=== PATIENT | female | born 1930 | race Caucasian/White ===

== ENCOUNTER 2018-06-21 08:46 | Outpatient (CLI) | payer MEDICARE, OTHER ==
[~2018-06-21 08:46] MED LIST: CT SWABBABLE VALVE TRANS SET 1 EA INFUS.SET MC ONE; IOHEXOL-300 100 ML VIAL IV ONE; IV NS 0.9% 0 ML IV ONE
[2018-06-21] MEDS ORDERED: IOHEXOL-300 100 ML VIAL IV ONE (09:21)
[2018-06-21] MEDS ORDERED: IV NS 0.9% 250 ML IV ONE (09:21)
== END 2018-06-21 23:59 | disposition home or self-care (01) ==
LOC: CT 08:46
PROVIDERS: ATTEND Psychiatry & Neurology Psychiatry
DX: K65.1 Peritoneal abscess (principal); E27.8 Other specified disorders of adrenal gland; R91.1 Solitary pulmonary nodule; I25.10 Atherosclerotic heart disease of native coronary artery without angina pectoris; K80.20 Calculus of gallbladder without cholecystitis without obstruction; K86.89 Other specified diseases of pancreas; K57.30 Diverticulosis of large intestine without perforation or abscess without bleeding; I70.0 Atherosclerosis of aorta; M81.0 Age-related osteoporosis without current pathological fracture; M16.11 Unilateral primary osteoarthritis, right hip
CPT/HCPCS: 74177; J7050; Q9967

== ENCOUNTER 2018-06-28 15:01 | Inpatient (IN) | payer MEDICARE, OTHER ==
[2018-06-28] VITALS (11 sets, daily range): BP systolic 34–127; BP diastolic 27–75
[~2018-06-28] VITALS: Ht 162.6 cm; Wt 70.5 kg
--- NOTE | 2018-06-28 15:16 | NUR ---
SEEN AND EXAMINED BY DR. MAYFIELD.
[2018-06-28] MEDS ORDERED: IV NS 0.9% 500 ML BAG IV ONE (15:30)
[2018-06-28] MEDS ORDERED: ISOS5TAB PO (15:36)
[2018-06-28] MEDS ORDERED: ASCO500T9 PO (15:36)
[2018-06-28] MEDS ORDERED: DIVA125C2 PO (15:36)
[2018-06-28] MEDS ORDERED: IPRA0.2S9 IH (15:36)
[2018-06-28] MEDS ORDERED: ALBU2.5V38 IH (15:36)
[2018-06-28] MEDS ORDERED: CLOP75TA15 PO (15:36)
[2018-06-28] MEDS ORDERED: OXYB10TA PO (15:36)
[2018-06-28] MEDS ORDERED: DOCU240C26 PO (15:36)
[2018-06-28] MEDS ORDERED: BLOO-668 IN (15:36)
[2018-06-28] MEDS ORDERED: ZINC220C8 PO (15:36)
[2018-06-28] MEDS ORDERED: INSU100I34 SQ (15:36)
[2018-06-28] MEDS ORDERED: BISA10SU8 RC (15:36)
[2018-06-28] MEDS ORDERED: ACET-868 PO ×2 (15:36)
[2018-06-28] MEDS ORDERED: DONE5TAB34 PO (15:36)
[2018-06-28] MEDS ORDERED: LACT10SO PO (15:36)
[2018-06-28] MEDS ORDERED: NA P133E RC (15:36)
[2018-06-28] MEDS ORDERED: PANT40TA2 PO (15:36)
[2018-06-28] MEDS ORDERED: DIPH25CA6 PO (15:36)
[2018-06-28] MEDS ORDERED: AMIN30LI27 PO (15:36)
[2018-06-28] MEDS ORDERED: LOPE2CAP PO (15:36)
[2018-06-28] MEDS ORDERED: METO25TA20 PO (15:36)
[2018-06-28] MEDS ORDERED: CALC200T42 PO (15:36)
[2018-06-28] MEDS ORDERED: FERR220S6 PO (15:36)
[2018-06-28] MEDS ORDERED: LACT1CAP71 PO (15:36)
[2018-06-28] MEDS ORDERED: MEMA10TA PO (15:36)
[2018-06-28] MEDS ORDERED: MULT-447 PO (15:36)
--- NOTE | 2018-06-28 15:40 | NUR ---
LABS DRAWNED AND SENT TO LAB.
[2018-06-28 15:42] LABS: BASOPHILS # (AUTO) 0.1 /CMM (0.0-0.2); BASOPHILS % (AUTO) 1.1 % (0.0-2.0); EOSINOPHILS % (AUTO) 1.6 % (0.0-6.0); HEMATOCRIT 37 % (33-45); HEMOGLOBIN 11.7 g/dL (11.5-14.8); LYMPHOCYTES # (AUTO) 3.2 /CMM (0.8-4.8); LYMPHOCYTES % (AUTO) 26.6 % (20.0-44.0); MEAN CORPUSCULAR HGB CONC 32 g/dl (31.0-36.0); MEAN CORPUSCULAR VOLUME 85 fL (82-100); MONOCYTES # (AUTO) 0.8 /CMM (0.1-1.30); MONOCYTES % (AUTO) 6.4 % (2.0-12.0); NEUTROPHILS # (AUTO) 7.8 /CMM (1.8-8.9); NEUTROPHILS % (AUTO) 64.3 % (43.0-81.0); PLATELET COUNT (AUTO) 380 /CMM (150-450); RED BLOOD CELL COUNT(AUTO) 4.33 MIL/uL (4.0-5.2); WHITE BLOOD COUNT (AUTO) 12.2 K/uL (4.3-11.0)
[2018-06-28 15:55] LABS: CALCIUM, SERUM 8.4 mg/dL (8.5-10.1); CARBON DIOXIDE 29 mmol/L (21-32); CHLORIDE 108 mmol/L (98-107); CREATININE 0.6 mg/dL (0.6-1.3); GLUCOSE 177 mg/dL (74-106); POTASSIUM 3.4 mmol/L (3.5-5.1); SODIUM SERUM 142 mmol/L (136-145); UREA NITROGEN, BLOOD 21 mg/dL (7-18)
[2018-06-28 16:00] LABS: ALANINE AMINOTRANSFERASE 7 U/L (12-78); ALKALINE PHOSPHATASE 125 U/L (46-116); ASPARTATE AMINOTRANSFERASE 16 U/L (15-37); BILIRUBIN,DIRECT 0.1 mg/dL (0.0-0.2); BILIRUBIN,TOTAL 0.3 mg/dL (0.2-1.0); TOTAL PROTEIN, SERUM 5.6 g/dL (6.4-8.2)
[2018-06-28 16:01] LABS: ALBUMIN 1.4 g/dL (3.4-5.0)
--- NOTE | 2018-06-28 16:10 | NUR ---
PT IS WHEELED TO CT SCAN VIA [facility].
[2018-06-28] MEDS ORDERED: PIPERACILLIN /TAZOBACTAM 3.375 G in IV D5W 50 ML IV ONE (16:30)
[2018-06-28] MEDS ORDERED: LORAZEPAM INJ 2 MG/ML VIAL IV ONE (17:00)
--- NOTE | 2018-06-28 17:00 | NUR ---
NGT TUBE INSERTED 55 AT THE R NOSTRIL.
[2018-06-28] MEDS ORDERED: LORAZEPAM INJ 2 MG/ML VIAL ONE (17:01)
[2018-06-28 17:17] LABS: APPEARANCE,URINE Cloudy (CLEAR); BILIRUBIN,URINE Negative (NEGATIVE); BLOOD, URINE Small Ery/uL (NEGATIVE); COLOR,URINE Yellow (YELLOW); KETONES,URINE Trace (NEGATIVE); LEUKOCYTE ESTERASE ,URINE Moderate (NEGATIVE); NITRITE, URINE Positive (NEGATIVE); PH,URINE 6.5 (5.0-8.0); PROTEIN,URINE 100 mg/dl (NEGATIVE); UGLUCOSE Negative (NEGATIVE)
[2018-06-28] MEDS ORDERED: ALBUMIN 5% 25 GM in PREMIX 1 EA IV ONE (17:30)
[2018-06-28 17:31] LABS: WBC,URINE TNTP /HPF (0-3)
[2018-06-28 17:32] LABS: BACTERIA,URINE 3+ /HPF (None Seen); SQUAMOUS EPITHELIAL CELL,UR Few /HPF (None Seen)
--- NOTE | 2018-06-28 17:40 | NUR ---
CALLED [facility] TO ER TO [phone]
--- NOTE | 2018-06-28 17:44 | NUR ---
SPOKE WITH WESTON NOLAN [phone] PLEASE CALL INTAKE [phone]
--- NOTE | 2018-06-28 17:57 | NUR ---
CALLED [facility] SPOKE WITH MONICA TO PRESENT CASE. FAXED OVER CLINICALS AND FACESHEET TO
[2018-06-28] MEDS ORDERED: ALBUMIN 25% 25 GM in PREMIX 1 EA IV ONE (18:00)
--- NOTE | 2018-06-28 18:25 | NUR ---
DR. FONSECA AT BEDSIDE FOR PT EVAL.
--- NOTE | 2018-06-28 18:30 | NUR ---
CALLED GRANDCHILD MADHURI, LEFT
--- NOTE | 2018-06-28 19:02 | NUR ---
RECEIVED CALL FROM CN REQUESTING TX FOR HIGHER LEVEL OD CARE FOR EMERGENT BOWEL RESECTION FOR BOWEL ISCHEMIC. CALLED [facility] @ [phone] SPOKE TO ROYAL AT [facility] NOT ABLE TO ACCEPT THE PT. CALLED [facility] @ [phone] SPOKE TO MERYL, PER MERYL GALINDO. SURGEON AND COLORECTAL SURGEON NOT ABLE TO ACCEPT PT DUE TO PT IS HIGH RISK FOR TRANSFER AT THIS TIME. CALLED [facility] [phone] SPOKE TO BECCA WHO IS REQUESTING ER NOTES TO BE FAX TO [phone]. FAXED DOCUMENTS AWAITING FOR RESPONSE. CN MADE AWARE.
--- NOTE | 2018-06-28 19:25 | NUR ---
REPORT RECIEVED FROM LYLA SÁNCHEZ FOR MEENAKSHI.
--- NOTE | 2018-06-28 19:42 | NUR ---
REPORT GIVEN TO COURSEWARE DEVELOPER FOR MEENAKSHI.
[2018-06-28] MEDS ORDERED: IOHEXOL-350 100 ML VIAL IV ONE (19:44)
[2018-06-28] MEDS ORDERED: CT SWABBABLE VALVE TRANS SET 1 EA INFUS.SET MC ONE (19:44)
[2018-06-28] MEDS ORDERED: IV NS 0.9% 250 ML IV ONE (19:44)
--- NOTE | 2018-06-28 19:45 | NUR ---
ICU/STRAIGHTENER GUN PARTS RECEIVED ORDER FOR RESTRAINTS. PT PULLING AT LINES AND IV. ORDER WAS OBTAINED AND CARRIED OUT.
[2018-06-28] MEDS ORDERED: ACETAMINOPHEN 650 MG/SUPP.RECT RC PRN (20:00)
[2018-06-28] MEDS ORDERED: IV NS 0.9% 1,000 ML IV PRN ×2 (20:00→22:30)
[2018-06-28] MEDS ORDERED: ONDANSETRON HCL/PF 4 MG/2 ML VIAL IV PRN (20:00)
--- NOTE | 2018-06-28 20:00 | NUR ---
ICU/CASINO BANKER PT WAS RECEIVED FROM ER. PT PLACED INTO ROOM 254. PLACED ON MONITOR. SEE FLOWSHEET AND SKIN ASSESSMENT FOR INTERVENTIONS . PT WAS TURNED AND REPOSITIONED FOR COMFORT AND CARE. DR. JULIO AT BEDSIDE TO SEE PT. ORDERS WERE RECIEVED AND CARRIED OUT.
[2018-06-28] MEDS ORDERED: FEE PK DOSING 1 MIN EA MC ONE (20:24)
--- NOTE | 2018-06-28 20:40 | NUR ---
ICU/ENTRY SPECIALISTS PT'S RR RATE IS IN THE 40'S IN 6 LITERS, SATURATION IS LOW 90'S TO 80'S. RT CAME ASSESS PT THEN ABG WAS DONE. CHARGE NURSE AWARE. NO CHANGES WERE MADE BUT WILL CLOSELY MONITOR THIS PT.
--- NOTE | 2018-06-28 20:50 | NUR ---
RT NOTES RT CALLED TO BEDSIDE DUE TO NEWLY TRANSFERRED PATIENT LOW O2 SATS 60-70%. PLACED NEW PROBE ON RIGHT INDEX FINGER FROM LEFT EAR LOBE. O2 SATS IMPROVED TO 90-94%. ABG ORDERED BY INTERNAL SECURITY MANAGER. ABG DONE ON LEFT RADIAL. RESULTS GIVEN TO RN.
--- NOTE | 2018-06-28 21:00 | NUR ---
ICU/MRI SPECIAL PROCEDURES TECHNOLOGIST CRITICAL CT FINDS OF ABDOMEN. DR FELICIA FRIAS FROM RADIOLOGY SAID PT SHOWS ISCHEMIC SMALL BOWEL AND STOMACH, NO PERFORATION. THERE IS POOR PORTAL VENOUS GASES. MD CALLED WITH RESULTS SAID THAT CALL SURGEON.
[2018-06-28 21:04] LABS: ABG BASE EXCESS -3.2 mmol/L; ABG OXYGEN SATURATION 91.7 % (92.0-98.5); ABG PCO2 37.6 mmHg (35.0-45.0); ABG PH 7.375 (7.350-7.450); ABG PO2 68.6 mmHg (75.0-100.0); AaDO2 288.9 mmHg; COHb 1.3 % (0.5-1.5); MetHb 0.6 % (0.0-1.5); SITE, ABG Left Radial; VENT MODE, BG simple mask
--- NOTE | 2018-06-28 21:05 | NUR ---
ICU/PARKING METER INSTALLER PT'S FAMILY CALLED ABOUT THE RESULTS OF CT AND ALSO ASKED ABOUT CODE STATUS. FAMILY MADE PT DNI/DNR. CHARGE NURSE AWARE OF THIS
--- NOTE | 2018-06-28 21:10 | NUR ---
ICU/FEED IN WORKER DR. SARA MOLINA CALLED SAID THAT SINCE PT IS DNR/DNI AND PT HAS POOR PROGNOSIS THEN IT'S NOT NECESSARY TO TAKE THE PT TO SURGERY. PT WOULD MOST LIKELY NOT SURVIVE.
--- NOTE | 2018-06-28 21:30 | NUR ---
ICU/DOCTORATE OF CHIROPRACTIC CALLED PRIMARY MD ABOUT CODE STATUS, LOW BP, ORDERS FOR BOLUS THEN LEVO. ALSO PICC LINE PLACEMENT DUE TO PRESSORS. CHARGE NURSE AWARE OF ORDERS.
--- NOTE | 2018-06-28 22:00 | NUR ---
ICU/WEAPONS MECHANIC FAMILY AT BEDSIDE.
--- NOTE | 2018-06-28 22:00 | NUR ---
ICU/DENTAL MANAGER PT'S BLOOD PRESSURE IS CRITICAL LOW. SAID OF TO PLACE PICC LINE FOR POSSIBLE PRESSORS. PICC LINE WAS PLACED WITH STERILE FIELD.
[2018-06-28] MEDS: VANCOMYCIN 500 MG in IV D5W 100 ML IV SCH (22:28)
--- NOTE | 2018-06-28 22:30 | NUR ---
ICU/MODERN LANGUAGES PROFESSOR PRESSOR OF LEVO STARTED DUE TO LOW BP. WILL MONITOR THIS PT.
[2018-06-28] MEDS ORDERED: NOREPINEPHRINE 4 MG/4 ML AMPUL IV ONE (22:49)
[2018-06-28] MEDS: NOREPINEPHRINE 16 MG in IV D5W 500 ML IV PRN (22:51)
[2018-06-29] VITALS (104 sets, daily range): BP systolic 35–138; BP diastolic 16–99
[2018-06-29] MEDS: PIPERACILLIN /TAZOBACTAM 3.375 G in IV D5W 50 ML IV SCH ×5 (00:28→23:07)
--- NOTE | 2018-06-29 01:46 | NUR ---
ICU/MIGRATORY GAME BIRD BIOLOGIST PT CONTINUES TO BE ON PRESSOR OF LEVO TO KEEP BP ABOVE 90'S. WILL CONTINUE TO MONITOR THIS PT.
[2018-06-29 05:21] LABS: BASOPHILS % (AUTO) 0.1 % (0.0-2.0); EOSINOPHILS % (AUTO) 0.1 % (0.0-6.0); HEMATOCRIT 43 % (33-45); HEMOGLOBIN 13.8 g/dL (11.5-14.8); LYMPHOCYTES # (AUTO) 0.7 /CMM (0.8-4.8); LYMPHOCYTES % (AUTO) 4.3 % (20.0-44.0); MEAN CORPUSCULAR HGB CONC 32 g/dl (31.0-36.0); MEAN CORPUSCULAR VOLUME 85 fL (82-100); MONOCYTES # (AUTO) 0.6 /CMM (0.1-1.30); MONOCYTES % (AUTO) 3.6 % (2.0-12.0); NEUTROPHILS # (AUTO) 15.5 /CMM (1.8-8.9); NEUTROPHILS % (AUTO) 91.9 % (43.0-81.0); PLATELET COUNT (AUTO) 357 /CMM (150-450); RED BLOOD CELL COUNT(AUTO) 5.09 MIL/uL (4.0-5.2); WHITE BLOOD COUNT (AUTO) 16.9 K/uL (4.3-11.0)
[2018-06-29 05:23] LABS: CALCIUM, SERUM 7.8 mg/dL (8.5-10.1); CARBON DIOXIDE 20 mmol/L (21-32); CHLORIDE 110 mmol/L (98-107); CREATININE 0.8 mg/dL (0.6-1.3); GLUCOSE 125 mg/dL (74-106); MAGNESIUM 1.7 mg/dL (1.8-2.4); PHOSPHORUS 4.7 mg/dL (2.5-4.9); POTASSIUM 3.7 mmol/L (3.5-5.1); SODIUM SERUM 145 mmol/L (136-145); UREA NITROGEN, BLOOD 26 mg/dL (7-18)
[2018-06-29 06:22] LABS: BAND % (MANUAL) 28 % (0.0-5.0); LYMPHOCYTES % (MANUAL) 4 % (16-48); MONOCYTES % (MANUAL) 4 % (0-11.0); NEUTROPHILS % (MANUAL) 64 (42-76)
[2018-06-29] MEDS: PHENYLEPHRINE 80 MG in IV D5W 250 ML IV PRN ×4 (07:59→21:16)
[2018-06-29] MEDS: HYDROMORPHONE 1 MG/1 ML DISP.SYRIN IV PRN ×4 (08:12→23:05)
[2018-06-29] MEDS: VANCOMYCIN 500 MG in IV D5W 100 ML IV SCH ×2 (08:12→20:30)
--- NOTE | 2018-06-29 08:48 | NUR ---
RN NOTE 0715: Received patient awake, moaning, with SHI PICC, Levo @ 38. IVF infusing as ordered. Rightr NGT intact, to LIS with minimal bloody residuals. On 10LPM of O2 via simple mask. Rehman cath intact, noted with minimal dark babak colored urine drained to BSD. ST 137. 0800: Called Dr. Morin and obtained order for additional pressors, updated re: the pateint, max dose Levo ang BP still 70-80's. Called Bessy but no answer, left message. 0830: Called bessy Garcia again and updated re: patient's condition. On 2 pressors now, still with high HR and, with shallow breathing and moaning. 0845: Reassessed patient for Dilaudid administration, patient is more calm now, less moaning, but still noted with HR 130's. BP sometimes unable to determine, titrating pressors as ordered. Called pharmacy to make Vasopressin bag.
[2018-06-29] MEDS: NOREPINEPHRINE 16 MG in IV D5W 500 ML IV PRN ×2 (09:03→15:33)
[2018-06-29] MEDS: VASOPRESSIN INJ 50 UNIT in IV D5W 497.5 ML IV PRN (09:16)
--- NOTE | 2018-06-29 09:41 | NUR ---
RN NOTE 0920: Son came, updated re: the patient, said they will wait for Vincfrancisco in the waiting room. On 3 pressors now, tried to do manual BP monitor, unable to hear good auscultation. 0940: Able to determine BP, manual 90's's./
[2018-06-29] MEDS: IV D5/0.45 NACL 1,000 ML IV PRN (10:27)
[2018-06-29] MEDS ORDERED: DEXTROSE 50%-WATER 50 ML DISP.SYRIN IV PRN (10:30)
--- NOTE | 2018-06-29 10:50 | NUR ---
RN NOTE 1010: GrandJose magdaleno and patient's son in the room. Dr. Morin talked to the family re: the POC, also made aware for comfort status. Per family, will do the same status for now. 1050: No any significant changes noted at this time.on 3 pressors max, HR 130, 93% on 6LPM of O2 via simple mask. RR 38-40. Low UOP. VGransdson at bedside, aware for the next pain med at 1210:
[2018-06-29] MEDS: BLOOD SUGAR DIAGNOSTIC 1 EACH STRIP IN SCH ×3 (11:27→23:54)
[2018-06-29] MEDS: Magnesium 1GM/D5W 100ML PREMIX 100 ML IV SCH ×2 (12:51→14:04)
[2018-06-29] MEDS: INSULIN REGULAR, HUMAN 100 UNIT/ML 3 ML VIAL SQ PRN ×2 (17:34→23:56)
--- NOTE | 2018-06-29 19:20 | NUR ---
ICU/SPORTS TRAINER RECEIVED REPORT FROM NURSE. SEE FLOWSHEET FOR ASSESSMENT AND ANY SKIN ISSUES WHICH ARE ADDRESSED WITH INTERVENTIONS WELL. PT WAS TURNED AND REPOSITIONED FOR COMFORT AND CARE. WILL CONTINUE TO MONITOR THIS PT. NO ACUTE DISTRESS SEEN AT THIS TIME.
--- NOTE | 2018-06-29 20:10 | NUR ---
ICU/FIBERGLASS ROVING WINDER PT'S TEMP IS 101.1 WITH NOTIFIED CHARGE NURSE. PT IS CURRENTLY ON VANCO AND ZOSYN. PT THIS AM HAD POSITIVE BLOOD CULTURE WHICH WERE POSITIVE RODS AND COCCI IN CHAINS. PT WAS ADMITTED FOR ISCHEMIC BOWEL. 3 BLANKETS WERE REMOVED WILL CLOSELY MONITOR THIS PT'S TEMP.
--- NOTE | 2018-06-29 20:33 | NUR ---
ICU/HOME HEALTH NURSE VANCO LEVEL IS 10, CHARGE NURSE AWARE. VANCO WAS HUNG BY CHARGE NURSE.
--- NOTE | 2018-06-29 23:19 | NUR ---
ICU/MC KAY STITCHER FLACC SCALE USED TO DETERMINE PT IS IN PAIN, CHARGE NURSE MADE AWARE OF THIS. CHARGE NURSE THEN GAVE DILAUDID 0.5MG IVP. PT WAS TURNED AND REPOSITIONED FOR COMFORT AND CARE. WILL MONITOR THIS PT.
[2018-06-30] VITALS (71 sets, daily range): BP systolic 68–126; BP diastolic 30–98
--- NOTE | 2018-06-30 00:10 | NUR ---
ICU/NATURALIST RECTAL TYLENOL GIVEN FOR TEMP 101.9, COOLING MEASURES STARTED WITH ICE PACKS. WHEN TURNED PT OVER TO PLACE THE TYLENOL PT WAS BLEEDING BRIGHT RED BLOOD. CHARGE NURSE WAS AT BEDSIDE AND WITNESS TO THIS. ORDER WAS PLACED FOR PT, PTT, AND INR.
[2018-06-30] MEDS: PHENYLEPHRINE 80 MG in IV D5W 250 ML IV PRN ×4 (01:01→14:07)
[2018-06-30] MEDS: NOREPINEPHRINE 16 MG in IV D5W 500 ML IV PRN (01:01)
--- NOTE | 2018-06-30 02:10 | NUR ---
ICU/MANAGER PET PT WAS GIVEN ICE BATH, DUE TO TEMP 102.3. CALLED HOUSE SUP FOR COOLING BLANKET. WITH COOLING MEASURES. PT CONTINUE TO HAVE RECTAL BLEEDING. WILL CONTINUE TO MONITOR THIS PT.
[2018-06-30 04:37] LABS: BASOPHILS # (AUTO) 0.1 /CMM (0.0-0.2); BASOPHILS % (AUTO) 0.4 % (0.0-2.0); HEMATOCRIT 37 % (33-45); HEMOGLOBIN 11.6 g/dL (11.5-14.8); LYMPHOCYTES # (AUTO) 1.7 /CMM (0.8-4.8); LYMPHOCYTES % (AUTO) 5.9 % (20.0-44.0); MEAN CORPUSCULAR HGB CONC 31 g/dl (31.0-36.0); MEAN CORPUSCULAR VOLUME 86 fL (82-100); MONOCYTES # (AUTO) 1.4 /CMM (0.1-1.30); MONOCYTES % (AUTO) 4.8 % (2.0-12.0); NEUTROPHILS # (AUTO) 26.1 /CMM (1.8-8.9); NEUTROPHILS % (AUTO) 88.9 % (43.0-81.0); PLATELET COUNT (AUTO) 278 /CMM (150-450); RED BLOOD CELL COUNT(AUTO) 4.36 MIL/uL (4.0-5.2); WHITE BLOOD COUNT (AUTO) 29.4 K/uL (4.3-11.0)
--- NOTE | 2018-06-30 04:57 | NUR ---
ICU/COOKY PACKER AM LABS WERE DRAWN, AM TEMP CONTINUE TO BE 102.5 RECTAL. LEVO CURRENTLY DOWN TO 14 MCG WITH KELECHI AND VASO AT MAX DOSAGE. WILL CONTINUE TO MONITOR THIS PT.
[2018-06-30 05:00] LABS: CALCIUM, SERUM 7.4 mg/dL (8.5-10.1); CARBON DIOXIDE 22 mmol/L (21-32); CHLORIDE 102 mmol/L (98-107); CREATININE 1.4 mg/dL (0.6-1.3); GLUCOSE 220 mg/dL (74-106); PHOSPHORUS 5.4 mg/dL (2.5-4.9); POTASSIUM 4.3 mmol/L (3.5-5.1); SODIUM SERUM 134 mmol/L (136-145); UREA NITROGEN, BLOOD 34 mg/dL (7-18)
[2018-06-30] MEDS: IV D5/0.45 NACL 1,000 ML IV PRN (05:09)
[2018-06-30] MEDS: PIPERACILLIN /TAZOBACTAM 3.375 G in IV D5W 50 ML IV SCH ×2 (05:15→11:41)
[2018-06-30 05:18] LABS: NEUTROPHILS % (MANUAL) 73 (42-76)
[2018-06-30 05:19] LABS: BAND % (MANUAL) 17 % (0.0-5.0); EOSINOPHILS % (MANUAL) 1 % (0-4); LYMPHOCYTES % (MANUAL) 5 % (16-48); MONOCYTES % (MANUAL) 4 % (0-11.0)
[2018-06-30] MEDS: VASOPRESSIN INJ 50 UNIT in IV D5W 497.5 ML IV PRN (05:23)
[2018-06-30] MEDS: INSULIN REGULAR, HUMAN 100 UNIT/ML 3 ML VIAL SQ PRN ×2 (05:33→12:18)
[2018-06-30] MEDS: BLOOD SUGAR DIAGNOSTIC 1 EACH STRIP IN SCH ×2 (05:34→12:17)
[2018-06-30] MEDS: HYDROMORPHONE 1 MG/1 ML DISP.SYRIN IV PRN ×2 (05:50→11:05)
--- NOTE | 2018-06-30 06:05 | NUR ---
ICU/WEIGHT LOSS CONSULTANT FLACC SCALE USED TO DETERMINE PT IS IN PAIN, CHARGE NURSE MADE AWARE OF THIS. CHARGE NURSE THEN GAVE DILAUDID 0.5MG IVP. PT WAS TURNED AND REPOSITIONED FOR COMFORT AND CARE. WILL MONITOR THIS PT, PT'S TEMP IS CURRENTLY 101.4 RECTALLY.
[2018-06-30] MEDS: VANCOMYCIN 500 MG in IV D5W 100 ML IV SCH (08:08)
--- NOTE | 2018-06-30 09:55 | NUR ---
RN NOTE 0715: Received patient obtunded. On 15LPM of O2 via NRB mask. 89-90% O2 sat. With SHI PICC intact, on IVF ongoing as ordered. With 3 pressors, Vaso 0.04, Kervin 300, Levo 14. Will titrate as ordered. Rehman cath intact, noted with very minimal babak colored urine drained to BSD. Abdomen still distended and tender. Right NGT intact, noted with very minimal dark residuals at this time. 0955: No any significant changes noted at this time. Levo on 6 at this time. Turned and repositioned q2.
[2018-06-30] MEDS ORDERED: IPRATROPIUM NEB FS 0.5 MG/2.5 ML AMPUL.NEB NEB PRN (12:30)
[2018-06-30] MEDS ORDERED: ALBUTEROL FS 2.5 MG/0.5 ML VIAL.NEB NEB PRN (12:30)
--- NOTE | 2018-06-30 14:25 | NUR ---
RN NOTE 1350: S/E by Dr. Mando Winters and ID. 1420: No any significant changes noted at this time.
[2018-06-30] MEDS ORDERED: MEROPENEM 1 G in IV NS 0.9% 100 ML IV ONE (15:00)
--- NOTE | 2018-06-30 17:08 | NUR ---
RN NOTE 1630: Spoke with family at bedside, 2 sons agreed to go to comfort measures, explained the process, verbalized understanding. 1700: Informed Dr. Isaacs and obtained order for Morphine 2mg IVP x1 then start Morphine drip and Ativan PRN and change code status to Comfort measures only.
[2018-06-30] MEDS ORDERED: MORPHINE SULFATE INJ 2 MG/ML DISP.SYRIN IV ONE (17:30)
[2018-06-30] MEDS ORDERED: LORAZEPAM INJ 2 MG/ML VIAL IV PRN (17:30)
--- NOTE | 2018-06-30 18:09 | NUR ---
RN NOTE Given 2mg Morphine IVP then started on Morphine @ 2mg/hr. Grandson and granddaughter at bedside. DCd pressors. Placed on 2 LPM of O2 via NC. Will continue to monitor for comfort.
--- NOTE | 2018-06-30 18:45 | NUR ---
RN NOTE PT ON COMFORT CARE. MORPHINE DRIP INFUSING. PT ASYSTOLIC, APNEIC, AREFLEXIVE. PUPILS FIXED AND DILATED. PT AT 1845.
--- NOTE | 2018-06-30 19:00 | NUR ---
RN NOTE Informed Dr. Isaacs, and spoke with grandson. Called [facility]. Ok to send to [facility], per family, they will call again to inform for the mortuary. Endorsed to next shift to deliver body to [facility].
[2018-07-01] MEDS ORDERED: MEROPENEM 1 G in IV NS 0.9% 100 ML IV SCH ×2
== END 2018-06-30 19:20 | disposition expired | DRG 871 ==
LOC: ER 15:07 → ICU 19:24
PROVIDERS: ADMIT Internal Medicine Nephrology; ATTEND Internal Medicine Nephrology
PROC: 02HV33Z Insertion of Infusion Device into Superior Vena Cava, Percutaneous Approach (ICD-10-PCS; principal; 2018-06-28)
PROC: B548ZZA Ultrasonography of Superior Vena Cava, Guidance (ICD-10-PCS; 2018-06-28)
DX: A41.9 Sepsis, unspecified organism (principal); R65.21 Severe sepsis with septic shock; K55.059 Acute (reversible) ischemia of intestine, part and extent unspecified; N17.0 Acute kidney failure with tubular necrosis; J96.01 Acute respiratory failure with hypoxia; J15.6 Pneumonia due to other Gram-negative bacteria; J15.9 Unspecified bacterial pneumonia; E87.2 Acidosis; J44.0 Chronic obstructive pulmonary disease with (acute) lower respiratory infection; N39.0 Urinary tract infection, site not specified; A41.50 Gram-negative sepsis, unspecified; Z51.5 Encounter for palliative care; Z66 Do not resuscitate; F02.80 Dementia in other diseases classified elsewhere, unspecified severity, without behavioral disturbance, psychotic disturbance, mood disturbance, and anxiety; G30.9 Alzheimer's disease, unspecified; I11.0 Hypertensive heart disease with heart failure; I50.9 Heart failure, unspecified; I25.10 Atherosclerotic heart disease of native coronary artery without angina pectoris; E11.9 Type 2 diabetes mellitus without complications; B96.4 Proteus (mirabilis) (morganii) as the cause of diseases classified elsewhere; Z16.12 Extended spectrum beta lactamase (ESBL) resistance; D64.9 Anemia, unspecified; E83.42 Hypomagnesemia; K21.9 Gastro-esophageal reflux disease without esophagitis; K81.9 Cholecystitis, unspecified; R13.10 Dysphagia, unspecified; Z74.01 Bed confinement status; Z79.02 Long term (current) use of antithrombotics/antiplatelets; K63.89 Other specified diseases of intestine
CPT/HCPCS: 36415; 36569; 36600; 71045-TC; 72170-TC; 80048-TC; 80076-TC; 80202-TC; 81000-TC; 82803-TC; 82962-TC; 83605-TC; 83735-TC; 84100-TC; 84484-TC; 85025-TC; 85730-TC; 87040-TC; 87081-TC; 87086-TC; 87186-TC; A4216; A6402; C1751; G0378; J1170; J1815; J2060; J2185; J2270; J2274; J2370; J2543; J3370; J3475; J3490; J7030; J7050; J7060; P9045; P9047; Q9967